=== PATIENT | male | born 1950 | race Caucasian/White ===

== ENCOUNTER 2018-12-23 07:18 | Day surgery (SDC) | payer OTHER ==
[2018-12-23] MEDS ORDERED: SURFAK240 M1 PO (15:50)
[2018-12-23] MEDS ORDERED: ZANTAC300 MG PO (15:50)
[2018-12-23] MEDS ORDERED: KEFLEX500 MG PO (15:50)
[2018-12-23] MEDS ORDERED: ULTRACET PO (15:50)
== END 2018-12-23 19:50 | disposition home or self-care (01) ==
LOC: CIR.AMB 07:18
DX: K42.0 Umbilical hernia with obstruction, without gangrene (principal)